=== PATIENT | male | born 1940 | race Caucasian/White ===

== ENCOUNTER 2023-07-20 10:34 | Emergency (ER) | payer OTHER ==
[2023-07-20] MEDS: Amoxicillin/Clavulanate K 875-125 MG Tab PO ONE (11:39)
== END 2023-07-20 11:56 | disposition home or self-care (01) ==
LOC: MW.ED 10:34
DX: K04.7 Periapical abscess without sinus (principal)
CPT/HCPCS: 99283; A9270